=== PATIENT | female | born 1940 | race Caucasian/White ===

== ENCOUNTER 2017-08-16 23:23 | Emergency (ER) | payer MEDICARE ==
[2017-08-17 00:45] LABS: #Basophils 0.2 thou/uL (0.0-0.2); #Eosinphils 0.2 thou/uL (0.0-0.7); #Lymphocytes 3.3 thou/uL (1.20-3.40); #Monocytes 0.9 thou/uL (0.11-0.59); #Neutrophils 6.5 thou/uL (1.40-6.50); %Basophils 1.5 % (0.0-1.0); %Eosinophils 1.8 % (0.0-10.0); %Lymphocytes 29.7 % (21.0-51.0); %Monocytes 7.7 % (0.0-10.0); %Neutrophils 59.4 % (42.0-75.0); Hemoglobin 13.5 g/dL (12.0-16.0); Mean Corpuscular HGB CONC 34.4 g/dL (32.0-36.0); Mean Corpuscular Hemoglobin 31.3 pg (27.0-31.0); Mean Corpuscular Volume 90.9 fl (81.0-99.0); Mean Platelet Volume 7.1 fL (7.4-10.4); Platelet Count 347 thou/uL (130-400); RBC Distribution Width 11.2 % (11.5-14.5); Red Blood Cell (RBC) Count 4.33 mill/uL (4.20-5.40)
[2017-08-17] MEDS ORDERED: Aspirin 325 MG TAB ONE (00:51)
[2017-08-17 00:55] LABS: BHCG - Serum Negative (NEGATIVE); Pregs Control Background? CLEAR/WHITE (CLR/WHITE); Pregs Control Bar Appear? YES (CONTROL BAR)
[2017-08-17 01:09] LABS: ALT (SGPT) 11 U/L (8-55); AST (SGOT) 16 U/L (5-34); Albumin 3.7 g/dL (3.4-4.8); Alkaline Phosphatase 121 U/L (40-150); Anion Gap 17 mmol/L (10-20); BUN (Urea Nitrogen) 41 mg/dL (9.8-20.1); Bilirubin, Total 0.4 mg/dL (0.2-1.2); Calc. Creatinine Clearance 0 mL/min (70-130); Calcium 9.5 mg/dL (7.8-10.44); Carbon Dioxide 20 mmol/L (23-31); Chloride 105 mmol/L (98-107); Estimated GFR-MDRD 19; Globulin 3.3 g/dL (2.4-3.5); Glucose 273 mg/dL (83-110); Potassium 4.1 mmol/L (3.5-5.1); Sodium 138 mmol/L (136-145)
[2017-08-17 01:10] LABS: CKMB 0.6 ng/mL (0-6.6); Troponin I 0.028 ng/mL (< 0.028)
--- NOTE | 2017-08-17 07:35 | CT ---
CT OF HEAD NONCONTRAST: COMPARISON: 05/18/11. INDICATION: Emergency exam, pain. FINDINGS: There is no acute intracranial hemorrhage, mass effect, or midline shift. Ventricular system is with in normal limits of size. 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 Redemonstration of skull base sclerosis and expansile appearance of the osseous structures as has been previously discussed. IMPRESSION: No acute intracranial abnormality. POS: [facility]
--- NOTE | 2017-08-17 09:11 | RAD ---
CHEST 1 VIEW: History Chest pain. COMPARISON: 09/04/11. FINDINGS: Cardiac silhouette is magnified by projection. Pulmonary vasculature is upper limits of normal. Med iastinum is midline. Calcified granulomata are consistent with healed granulomatous disease. There is no lobar consolidation or evidence of pneumothorax. IMPRESSION: No active cardiopulmonary abnormalities are demonstrated. POS: [facility]
== END 2017-08-17 01:17 | disposition short-term general hospital (02) ==
LOC: MADERS 23:23
DX: I63.9 Cerebral infarction, unspecified (principal); R07.89 Other chest pain; I50.9 Heart failure, unspecified; E10.9 Type 1 diabetes mellitus without complications; E78.5 Hyperlipidemia, unspecified; I10 Essential (primary) hypertension; F32.9 Major depressive disorder, single episode, unspecified
CPT/HCPCS: 70450; 71045; 80053; 82553; 84484; 84703; 85025; 85730; 93005

== ENCOUNTER 2017-11-06 14:54 | Outpatient (CLI) | payer MEDICARE ==
[2017-11-06 18:05] LABS: Bilirubin Negative (Negative); Blood, Urine Trace (Negative); Glucose, Urine (Dipstick) 100 mg/dL (Negative); Leukocyte Moderate (Negative); Nitrite Negative (Negative); Protein, Urine (Dipstick) 100 mg/dL (Neg-Trace); Urobilinogen 0.2 mg/dL (0.2-1.0); pH, Urine 5.5 (5.0-9.0)
[2017-11-06 18:09] LABS: Clarity Cloudy (Clear)
[2017-11-06 18:14] LABS: Bacteria/HPF 2+ HPF (None Seen); RBC/HPF 0-3 HPF (0-3); Yeast-All Forms Rare HPF (None Seen)
== END 2017-11-06 14:55 | disposition home or self-care (01) ==
LOC: MADLABBHPM 14:54
PROVIDERS: ATTEND Family Medicine
DX: N18.4 Chronic kidney disease, stage 4 (severe) (principal)
CPT/HCPCS: 81001; 87077; 87086; 87186

== ENCOUNTER 2017-11-07 14:10 | Outpatient (CLI) | payer MEDICARE ==
[2017-11-07 14:26] LABS: #Basophils 0.1 thou/uL (0.0-0.2); #Eosinphils 0.2 thou/uL (0.0-0.7); #Lymphocytes 2.2 thou/uL (1.20-3.40); #Monocytes 0.6 thou/uL (0.11-0.59); #Neutrophils 4.9 thou/uL (1.40-6.50); %Basophils 1.3 % (0.0-1.0); %Eosinophils 2.9 % (0.0-10.0); %Lymphocytes 27.2 % (21.0-51.0); %Monocytes 7.4 % (0.0-10.0); %Neutrophils 61.3 % (42.0-75.0); Hemoglobin 10.9 g/dL (12.0-16.0); Mean Corpuscular HGB CONC 32.4 g/dL (32.0-36.0); Mean Corpuscular Hemoglobin 28.5 pg (27.0-31.0); Platelet Count 371 thou/uL (130-400); RBC Distribution Width 10.6 % (11.5-14.5); Red Blood Cell (RBC) Count 3.82 mill/uL (4.20-5.40)
[2017-11-07 14:35] LABS: Anion Gap 15 mmol/L (10-20); BUN (Urea Nitrogen) 21 mg/dL (9.8-20.1); Calc. Creatinine Clearance 0 mL/min (70-130); Carbon Dioxide 21 mmol/L (23-31); Chloride 106 mmol/L (98-107); Estimated GFR-MDRD 27; Glucose 256 mg/dL (83-110); Potassium 4.2 mmol/L (3.5-5.1); Sodium 138 mmol/L (136-145)
[2017-11-07 16:49] LABS: ALT (SGPT) 11 U/L (8-55); AST (SGOT) 11 U/L (5-34); Albumin 3.3 g/dL (3.4-4.8); Alkaline Phosphatase 86 U/L (40-150); Bilirubin, Total 0.4 mg/dL (0.2-1.2); Globulin 2.8 g/dL (2.4-3.5); Protein, Total 6.1 g/dL (6.0-8.3)
[2017-11-07 20:11] LABS: Hemoglobin A1c 6.8 % (4.0-6.0)
== END 2017-11-07 14:11 | disposition home or self-care (01) ==
LOC: MADLABBHPM 14:10
PROVIDERS: ATTEND Family Medicine
DX: I12.9 Hypertensive chronic kidney disease with stage 1 through stage 4 chronic kidney disease, or unspecified chronic kidney disease (principal); E11.22 Type 2 diabetes mellitus with diabetic chronic kidney disease; N18.9 Chronic kidney disease, unspecified; E03.9 Hypothyroidism, unspecified
CPT/HCPCS: 36415; 80053; 83036; 84443; 85025